=== PATIENT | female | born 1955 | race African-American/Black ===

== ENCOUNTER 2023-08-05 15:31 | Inpatient (IN) | payer MEDICARE, OTHER ==
[~2023-08-05] VITALS: Ht 152.4 cm; Wt 107.7 kg
[~2023-08-05 15:31] MED LIST: ALBU8.5H8 IH; CARV25TA32 PO; FERR325T27 PO; FURO40 PO; IPRAHFA IH; ISOS20TA9 PO; LISI40TA9 PO; LOPE-232 PO; OMEP20TA20 PO; OXYB5 PO; PRED-554 PO; WARF5TAB9 PO
[2023-08-05] MEDS ORDERED: FOLI-130 PO (17:46)
[2023-08-05] MEDS ORDERED: METO5TAB7 PO (17:46)
[2023-08-05] MEDS ORDERED: ALBU18HF12 IH (17:46)
[2023-08-05] MEDS ORDERED: AMLO10TA55 PO (17:46)
[2023-08-05] MEDS ORDERED: EPOE10003 SQ (17:46)
[2023-08-05] MEDS ORDERED: BUME1TAB6 PO (17:46)
[2023-08-05] MEDS ORDERED: ASPI-1444 PO (17:46)
[2023-08-05] MEDS ORDERED: OMEP20CA12 PO (17:46)
[2023-08-05] MEDS ORDERED: ATOR20TA65 PO (17:46)
[2023-08-05] MEDS ORDERED: GABA-529 PO (17:46)
[2023-08-05] MEDS ORDERED: POTA-92 PO (17:46)
[2023-08-05] MEDS ORDERED: IPRA3AMP24 NEB (17:46)
[2023-08-05] MEDS ORDERED: ALLO100T PO (17:46)
[2023-08-05] MEDS ORDERED: APIX2.5T PO (17:46)
[2023-08-05] MEDS ORDERED: MONT-40 PO (17:46)
[2023-08-05] MEDS ORDERED: METO-408 PO (17:46)
[2023-08-05] MEDS ORDERED: ANAS1TAB50 PO (17:46)
[2023-08-05] MEDS ORDERED: CINA30TA5 PO (17:46)
[2023-08-05] MEDS ORDERED: HYDR10TA31 PO (17:46)
[2023-08-05 18:07] LABS: BASOPHILS % (AUTO) 0.4 % (0.0-2.0); EOSINOPHILS % (AUTO) 3.1 % (1.0-6.0); LYMPHOCYTES # (AUTO) 0.6 K/uL (1.0-4.8); LYMPHOCYTES % (AUTO) 9.8 % (22.0-44.0); MEAN CORPUSCULAR HEMOGLOBIN 23.4 pg (26.0-34.0); MEAN CORPUSCULAR HGB CONC 29.7 G/dL (31.0-37.0); MEAN CORPUSCULAR VOLUME 79 fL (80-100); MONOCYTES # (AUTO) 0.7 K/uL (0.1-1.0); MONOCYTES % (AUTO) 10.1 % (2.0-9.0); NEUTROPHILS % (AUTO) 76.6 % (40.0-70.0); PLATELET COUNT (AUTO) 158 K/uL (150-450); RED BLOOD CELL COUNT(AUTO) 3.43 MIL/uL (4.00-5.20); RED CELL DISTRIBUTION WIDTH 21.5 % (11.5-14.5); WHITE BLOOD COUNT (AUTO) 6.5 K/uL (4.5-11.0)
[2023-08-05 18:29] LABS: ALBUMIN 3.3 g/dL (3.4-5.0); BILIRUBIN,TOTAL 1.2 mg/dL (0.1-1.0); CREATININE 2.21 mg/dL (0.60-1.30); TOTAL PROTEIN, SERUM 7.4 g/dL (6.4-8.2)
[2023-08-05 18:31] LABS: POTASSIUM 2.5 mmol/L (3.5-5.1); TROPONIN I-HIGH SENSITIVITY 132 ng/L (<51)
[2023-08-05] MEDS ORDERED: FUROSEMIDE 40 MG/4 ML VIAL IVP ONE (19:30)
[2023-08-05] MEDS: ASPIRIN 325 MG TABLET PO ONE (19:47)
[2023-08-05] MEDS: POTASSIUM CHLORIDE 20 MEQ ER TABLET PO ONE (19:47)
[2023-08-05] MEDS: FUROSEMIDE 20 MG/2 ML VIAL IVP ONE (19:47)
[2023-08-05] MEDS ORDERED: ONDANSETRON HCL 4 MG/2 ML VIAL IVP PRN (20:15)
[2023-08-05] MEDS: POTASSIUM CHL 10 MEQ/WATER 50 ML IV SCH (20:30)
[2023-08-05 20:42] LABS: MAGNESIUM 2.5 mg/dL (1.80-2.40)
[2023-08-05 20:51] LABS: % IRON SATURATION 6.5 % (22-44)
[2023-08-05] MEDS: DOCUSATE SODIUM 100 MG CAPSULE PO SCH (20:51)
[2023-08-05] MEDS: GABAPENTIN 100 MG CAPSULE PO SCH (20:51)
[2023-08-05] MEDS: APIXABAN 2.5 MG TABLET PO SCH (22:00)
[2023-08-05] MEDS: OMEPRAZOLE 20 MG CAPSULE PO SCH (22:00)
[2023-08-05] MEDS: HydrALAZINE HCL 10 MG TABLET PO SCH (22:00)
[2023-08-05 22:41] LABS: TROPONIN I-HIGH SENSITIVITY 136 ng/L (<51)
[2023-08-05 23:09] VITALS: BP 150/86; PULSE 81; RESP 20; TEMP 97.7
[2023-08-05] MEDS: ACETAMINOPHEN 325 MG TABLET PO PRN (23:52)
[2023-08-06] VITALS (7 sets, daily range): BP systolic 112–146; BP diastolic 71–83; PULSE 74–82; RESP 18–19; TEMP 97.6–98
[2023-08-06] MEDS ORDERED: HEPARIN SODIUM,PORCINE 5,000 UNITS/ML VIAL SQ SCH
[2023-08-06 07:48] LABS: BASOPHILS % (AUTO) 0.7 % (0.0-2.0); EOSINOPHILS % (AUTO) 4.8 % (1.0-6.0); HEMATOCRIT 27.1 % (36-46); LYMPHOCYTES # (AUTO) 0.6 K/uL (1.0-4.8); LYMPHOCYTES % (AUTO) 11.9 % (22.0-44.0); MEAN CORPUSCULAR HEMOGLOBIN 23.9 pg (26.0-34.0); MEAN CORPUSCULAR HGB CONC 29.6 G/dL (31.0-37.0); MEAN CORPUSCULAR VOLUME 81 fL (80-100); MONOCYTES # (AUTO) 0.7 K/uL (0.1-1.0); MONOCYTES % (AUTO) 13.6 % (2.0-9.0); NEUTROPHILS # (AUTO) 3.7 K/uL (1.8-7.7); PLATELET COUNT (AUTO) 149 K/uL (150-450); RED BLOOD CELL COUNT(AUTO) 3.36 MIL/uL (4.00-5.20); RED CELL DISTRIBUTION WIDTH 20.9 % (11.5-14.5); WHITE BLOOD COUNT (AUTO) 5.3 K/uL (4.5-11.0)
[2023-08-06 07:56] LABS: CALCIUM, TOTAL 8.6 mg/dL (8.8-10.5); CREATININE 2.18 mg/dL (0.60-1.30); MAGNESIUM 2.4 mg/dL (1.80-2.40)
[2023-08-06 08:01] LABS: RBC MORPHOLOGY COMMENT ABNORMAL RBC MORPH
[2023-08-06 08:03] LABS: POTASSIUM 2.9 mmol/L (3.5-5.1); TROPONIN I-HIGH SENSITIVITY 126 ng/L (<51)
[2023-08-06] MEDS: BUMETANIDE 0.25 MG/ML 4 ML VIAL IVP SCH (09:00)
[2023-08-06] MEDS ORDERED: BUMETANIDE 1 MG TABLET PO SCH (09:00)
[2023-08-06] MEDS ORDERED: AmLODIPine BESYLATE 10 MG TABLET PO SCH (09:00)
[2023-08-06] MEDS: METOPROLOL SUCCINATE 25 MG ER TABLET PO SCH (09:22)
[2023-08-06] MEDS: FOLIC ACID 1 MG TABLET PO SCH (09:22)
[2023-08-06] MEDS: ASPIRIN 81 MG DR TABLET PO SCH (09:23)
[2023-08-06] MEDS: ATORVASTATIN CALCIUM 20 MG TABLET PO SCH (09:23)
[2023-08-06] MEDS: ALLOPURINOL 100 MG TABLET PO SCH (09:24)
[2023-08-06] MEDS: CINACALCET HCL 30 MG TABLET PO SCH (09:24)
[2023-08-06] MEDS: ANASTROZOLE 1 MG TABLET PO SCH (09:25)
[2023-08-06] MEDS: MONTELUKAST SODIUM 10 MG TABLET PO SCH (10:51)
[2023-08-06] MEDS: POTASSIUM CHLORIDE 20 MEQ ER TABLET PO SCH (10:51)
[2023-08-06] MEDS: SOD FERRIC GLUC COMPLX/SUCROSE 125 MG in SODIUM CHLORIDE 0.9% 100 ML IV SCH (12:00)
[2023-08-06] MEDS: OxyCODONE HCL/ACETAMINOPHEN 5-325 MG TABLET PO PRN (13:03)
[2023-08-06] MEDS: EPOETIN ALFA 10,000 UNITS/ML VIAL SQ ONE (16:22)
[2023-08-07 00:15] VITALS: BP 136/81; PULSE 74; RESP 18; TEMP 97.4
[2023-08-07 04:31] VITALS: BP 127/76; PULSE 77; RESP 19; TEMP 98
[2023-08-07 07:25] LABS: BASOPHILS % (AUTO) 0.8 % (0.0-2.0); EOSINOPHILS % (AUTO) 5.9 % (1.0-6.0); HEMATOCRIT 26.4 % (36-46); HEMOGLOBIN 7.6 g/dL (12.0-16.0); LYMPHOCYTES # (AUTO) 0.8 K/uL (1.0-4.8); LYMPHOCYTES % (AUTO) 12.8 % (22.0-44.0); MEAN CORPUSCULAR HEMOGLOBIN 23.5 pg (26.0-34.0); MEAN CORPUSCULAR HGB CONC 28.8 G/dL (31.0-37.0); MEAN CORPUSCULAR VOLUME 82 fL (80-100); MONOCYTES # (AUTO) 0.5 K/uL (0.1-1.0); MONOCYTES % (AUTO) 8.1 % (2.0-9.0); NEUTROPHILS # (AUTO) 4.4 K/uL (1.8-7.7); NEUTROPHILS % (AUTO) 72.4 % (40.0-70.0); PLATELET COUNT (AUTO) 184 K/uL (150-450); RED BLOOD CELL COUNT(AUTO) 3.24 MIL/uL (4.00-5.20); WHITE BLOOD COUNT (AUTO) 6.1 K/uL (4.5-11.0)
[2023-08-07 08:00] LABS: CREATININE 2.28 mg/dL (0.60-1.30); MAGNESIUM 2.7 mg/dL (1.80-2.40); PHOSPHORUS 2.4 mg/dL (2.5-4.9); POTASSIUM 5.5 mmol/L (3.5-5.1)
[2023-08-07 08:08] VITALS: BP 128/80; PULSE 80; RESP 18; TEMP 98
[2023-08-07] MEDS ORDERED: BUMETANIDE 0.25 MG/ML 4 ML VIAL IVP SCH (09:00)
[2023-08-07 09:47] LABS: RBC MORPHOLOGY COMMENT ABNORMAL RBC MORPH
[2023-08-07] MEDS: METOLAZONE 2.5 MG TABLET PO SCH (10:30)
[2023-08-07 11:59] VITALS: BP 110/55; PULSE 69; RESP 18; TEMP 98
[2023-08-07 16:25] VITALS: BP 139/83; PULSE 85; RESP 18; TEMP 97.8
[2023-08-07] MEDS: BUMETANIDE 1 MG TABLET PO SCH (16:46)
[2023-08-07] MEDS: ALBUTEROL SULFATE HFA 90 MCG/PUFF 8 GM INHALER IH PRN (17:21)
[2023-08-07 19:58] VITALS: BP_SYST 112; BP_SYST 84; BP_DIAS 65; BP_DIAS 78; PULSE 72; RESP 18; TEMP 97.7
[2023-08-08 00:20] VITALS: BP 100/52; PULSE 82; RESP 18; TEMP 97.6
[2023-08-08 04:27] VITALS: BP 100/58; PULSE 81; RESP 18; TEMP 97.5
[2023-08-08 07:39] VITALS: BP 100/73; PULSE 68; RESP 18; TEMP 97.5
[2023-08-08 10:06] LABS: CALCIUM, TOTAL 8.9 mg/dL (8.8-10.5); CREATININE 2.55 mg/dL (0.60-1.30); POTASSIUM 5.7 mmol/L (3.5-5.1)
[2023-08-08 10:10] LABS: MAGNESIUM 2.6 mg/dL (1.80-2.40); PHOSPHORUS 2.9 mg/dL (2.5-4.9)
[2023-08-08] MEDS: SODIUM ZIRCONIUM CYCLOSILICATE 5 GM POWDER PACKET PO ONE ×2 (12:25→20:12)
[2023-08-08 16:34] VITALS: BP 118/68; PULSE 69; RESP 18; TEMP 97.9
[2023-08-08 19:46] VITALS: BP 98/65; PULSE 82; RESP 20; TEMP 97.8
[2023-08-09 00:56] VITALS: BP 111/72; PULSE 74; RESP 20; TEMP 98.2
[2023-08-09 03:21] VITALS: BP 109/70; PULSE 86; RESP 20; TEMP 98.5
[2023-08-09 07:25] VITALS: BP 110/70; PULSE 72; RESP 18; TEMP 98
[2023-08-09 08:04] LABS: BASOPHILS % (AUTO) 0.6 % (0.0-2.0); HEMOGLOBIN 7.6 g/dL (12.0-16.0); LYMPHOCYTES # (AUTO) 0.7 K/uL (1.0-4.8); LYMPHOCYTES % (AUTO) 13.6 % (22.0-44.0); MEAN CORPUSCULAR HEMOGLOBIN 23.4 pg (26.0-34.0); MEAN CORPUSCULAR HGB CONC 29.2 G/dL (31.0-37.0); MEAN CORPUSCULAR VOLUME 80 fL (80-100); MONOCYTES # (AUTO) 0.4 K/uL (0.1-1.0); MONOCYTES % (AUTO) 7.7 % (2.0-9.0); NEUTROPHILS # (AUTO) 3.9 K/uL (1.8-7.7); NEUTROPHILS % (AUTO) 72.1 % (40.0-70.0); PLATELET COUNT (AUTO) 178 K/uL (150-450); RED BLOOD CELL COUNT(AUTO) 3.25 MIL/uL (4.00-5.20); RED CELL DISTRIBUTION WIDTH 20.8 % (11.5-14.5); WHITE BLOOD COUNT (AUTO) 5.4 K/uL (4.5-11.0)
[2023-08-09 08:17] LABS: CALCIUM, TOTAL 8.6 mg/dL (8.8-10.5); CREATININE 2.7 mg/dL (0.60-1.30); MAGNESIUM 2.1 mg/dL (1.80-2.40); PHOSPHORUS 3.3 mg/dL (2.5-4.9); POTASSIUM 4.9 mmol/L (3.5-5.1)
[2023-08-09 09:38] LABS: RBC MORPHOLOGY COMMENT ABNORMAL RBC MORPH
[2023-08-09 11:00] VITALS: BP 123/67; PULSE 88; RESP 18; TEMP 98.8
[2023-08-09 15:41] VITALS: BP 114/57; PULSE 65; RESP 19; TEMP 98.6
== END 2023-08-09 16:45 | disposition home or self-care (01) | DRG 194 ==
LOC: EMS 15:31 → 5S 21:57
PROVIDERS: ADMIT Internal Medicine; ATTEND Internal Medicine
DX: I13.0 Hypertensive heart and chronic kidney disease with heart failure and stage 1 through stage 4 chronic kidney disease, or unspecified chronic kidney disease (principal); D69.6 Thrombocytopenia, unspecified; I27.20 Pulmonary hypertension, unspecified; E87.3 Alkalosis; E44.0 Moderate protein-calorie malnutrition; N18.4 Chronic kidney disease, stage 4 (severe); D63.1 Anemia in chronic kidney disease; E87.6 Hypokalemia; I50.33 Acute on chronic diastolic (congestive) heart failure; E11.22 Type 2 diabetes mellitus with diabetic chronic kidney disease; Z68.42 Body mass index [BMI] 45.0-49.9, adult; I48.19 Other persistent atrial fibrillation; J96.11 Chronic respiratory failure with hypoxia; R62.7 Adult failure to thrive; J44.9 Chronic obstructive pulmonary disease, unspecified; Z20.822 Contact with and (suspected) exposure to COVID-19; Z85.3 Personal history of malignant neoplasm of breast; M81.0 Age-related osteoporosis without current pathological fracture; R79.89 Other specified abnormal findings of blood chemistry; E87.5 Hyperkalemia; I34.0 Nonrheumatic mitral (valve) insufficiency; E66.01 Morbid (severe) obesity due to excess calories; Z99.81 Dependence on supplemental oxygen; E78.5 Hyperlipidemia, unspecified; T50.2X5A Adverse effect of carbonic-anhydrase inhibitors, benzothiadiazides and other diuretics, initial encounter; Y92.89 Other specified places as the place of occurrence of the external cause; I25.10 Atherosclerotic heart disease of native coronary artery without angina pectoris; Z74.01 Bed confinement status; Z79.899 Other long term (current) drug therapy; Z87.891 Personal history of nicotine dependence; G47.33 Obstructive sleep apnea (adult) (pediatric)
CPT/HCPCS: 71045; 80048; 80053; 83540; 83550; 83735; 83880; 84100; 84132; 84484; 85025; 85045; 93005; 93306; 97116; 97163; 99285; J0885; J1940; J2916; J3480; J3490; J3535; J7050; Q9967; 36415-L1; 36415-TC

== ENCOUNTER 2023-08-13 13:47 | Inpatient (IN) | payer MEDICARE, OTHER ==
[~2023-08-13] VITALS: Ht 167.6 cm; Wt 115.5 kg
[~2023-08-13 13:47] MED LIST changes: +ALBU18HF12 IH; -ALBU8.5H8 IH; +AMLO10TA55 PO; +ANAS1TAB50 PO; +APIX2.5T PO; +ATOR20TA65 PO; +BUME1TAB6 PO; -CARV25TA32 PO; +CINA30TA5 PO; +EPOE10003 SQ; -FERR325T27 PO; +FOLI-130 PO; -FURO40 PO; +HYDR10TA31 PO; +IPRA3AMP24 NEB; -IPRAHFA IH; -ISOS20TA9 PO; -LISI40TA9 PO; -LOPE-232 PO; +METO-408 PO; +METO5TAB7 PO; +MONT-40 PO; +OMEP20CA12 PO; -OMEP20TA20 PO; -OXYB5 PO; -PRED-554 PO; -WARF5TAB9 PO
[2023-08-13 15:11] LABS: BASOPHILS % (AUTO) 1.1 % (0.0-2.0); EOSINOPHILS % (AUTO) 3.7 % (1.0-6.0); HEMATOCRIT 27.6 % (36-46); HEMOGLOBIN 8.1 g/dL (12.0-16.0); LYMPHOCYTES # (AUTO) 0.8 K/uL (1.0-4.8); LYMPHOCYTES % (AUTO) 15.9 % (22.0-44.0); MEAN CORPUSCULAR HEMOGLOBIN 23.3 pg (26.0-34.0); MEAN CORPUSCULAR HGB CONC 29.2 G/dL (31.0-37.0); MEAN CORPUSCULAR VOLUME 80 fL (80-100); MONOCYTES # (AUTO) 0.3 K/uL (0.1-1.0); MONOCYTES % (AUTO) 6.7 % (2.0-9.0); NEUTROPHILS # (AUTO) 3.4 K/uL (1.8-7.7); NEUTROPHILS % (AUTO) 72.6 % (40.0-70.0); PLATELET COUNT (AUTO) 215 K/uL (150-450); RED BLOOD CELL COUNT(AUTO) 3.47 MIL/uL (4.00-5.20); RED CELL DISTRIBUTION WIDTH 21.1 % (11.5-14.5); WHITE BLOOD COUNT (AUTO) 4.7 K/uL (4.5-11.0)
[2023-08-13 15:18] LABS: CALCIUM, TOTAL 9.4 mg/dL (8.8-10.5); CREATININE 2.16 mg/dL (0.60-1.30); POTASSIUM 3.7 mmol/L (3.5-5.1)
[2023-08-13 15:23] LABS: ALBUMIN 3.1 g/dL (3.4-5.0); BILIRUBIN,TOTAL 0.9 mg/dL (0.1-1.0); TOTAL PROTEIN, SERUM 7.4 g/dL (6.4-8.2)
[2023-08-13 15:28] LABS: TROPONIN I-HIGH SENSITIVITY 46 ng/L (<51)
[2023-08-13 15:54] LABS: RBC MORPHOLOGY COMMENT ABNORMAL RBC MORPH
[2023-08-13] MEDS ORDERED: ALBUTEROL SULFATE 2.5 MG/0.5 ML NEB SOLUTION NEB PRN (16:00)
[2023-08-13] MEDS ORDERED: BISACODYL 10 MG RECTAL RECTAL SUPPOSITORY PR PRN (16:00)
[2023-08-13] MEDS ORDERED: ONDANSETRON HCL 4 MG/2 ML VIAL IVP PRN (16:00)
[2023-08-13 16:26] LABS: GLUCOMETER DEV NAME(LOC) ER.6; GLUCOSE,POINT OF CARE 78 MG/DL (70-110)
[2023-08-13 17:00] LABS: APPEARANCE,URINE CLEAR (CLEAR); BILIRUBIN,URINE NEGATIVE (NEGATIVE); COLOR,URINE LIGHT YELLOW (YELLOW); GLUCOSE, URINE (UA) NEGATIVE (NEGATIVE); KETONES,URINE NEGATIVE (NEGATIVE); LEUKOCYTE ESTERASE ,URINE TRACE (NEGATIVE); NITRATE,URINE NEGATIVE (NEGATIVE); OCCULT BLOOD,URINE NEGATIVE (NEGATIVE); PROTEIN,URINE NEGATIVE (NEGATIVE); SPECIFIC GRAVITIY, URINE 1.014 (1.003-1.030); UROBILINOGEN,URINE <=1.0 mg/dL (<=1.0)
[2023-08-13 17:14] LABS: SQUAMOUS EPITHELIAL CELL,UR Few /LPF (None Seen)
[2023-08-13 17:14] LABS: COVID AG,FIA SOURCE NASAL SWAB
[2023-08-13 17:15] LABS: RBC,URINE None Seen /HPF (0-2)
[2023-08-13 17:16] LABS: BACTERIA,URINE Few /HPF (None Seen)
[2023-08-13] MEDS: OxyCODONE HCL/ACETAMINOPHEN 5-325 MG TABLET PO PRN (17:39)
[2023-08-13] MEDS: BUMETANIDE 0.25 MG/ML 4 ML VIAL IVP SCH (17:39)
[2023-08-13 17:40] LABS: SARS-COV2 (COVID) ANTIGEN,FIA Negative (Negative)
[2023-08-13] MEDS: DOCUSATE SODIUM 100 MG CAPSULE PO SCH (21:00)
[2023-08-13 21:06] VITALS: BP 113/87; PULSE 74; RESP 20; TEMP 97.7
[2023-08-13 21:11] LABS: TROPONIN I-HIGH SENSITIVITY 44 ng/L (<51)
[2023-08-13] MEDS: APIXABAN 2.5 MG TABLET PO SCH (21:59)
[2023-08-13] MEDS: ACETAMINOPHEN 325 MG TABLET PO PRN (22:01)
[2023-08-13] MEDS: METOPROLOL TARTRATE 25 MG TABLET PO SCH (22:04)
[2023-08-14 00:38] VITALS: BP 103/64; PULSE 63; RESP 18; TEMP 98.1
[2023-08-14 04:36] VITALS: BP 98/60; PULSE 67; RESP 18; TEMP 98
[2023-08-14 07:56] VITALS: BP 115/68; PULSE 64; RESP 18; TEMP 97.6
[2023-08-14] MEDS: FAMOTIDINE 20 MG TABLET PO SCH (09:01)
[2023-08-14 11:03] VITALS: BP 109/68; PULSE 65; RESP 18; TEMP 97.8
[2023-08-14] MEDS ORDERED: ACET-3385 PO (12:24)
== END 2023-08-14 17:35 | disposition home or self-care (01) | DRG 198 ==
LOC: EMS 13:47 → 5N 19:00
PROVIDERS: ADMIT Internal Medicine; ATTEND Internal Medicine
DX: I25.10 Atherosclerotic heart disease of native coronary artery without angina pectoris (principal); I13.0 Hypertensive heart and chronic kidney disease with heart failure and stage 1 through stage 4 chronic kidney disease, or unspecified chronic kidney disease; I27.20 Pulmonary hypertension, unspecified; E11.22 Type 2 diabetes mellitus with diabetic chronic kidney disease; I50.9 Heart failure, unspecified; Z20.822 Contact with and (suspected) exposure to COVID-19; G89.29 Other chronic pain; E66.01 Morbid (severe) obesity due to excess calories; G47.33 Obstructive sleep apnea (adult) (pediatric); I48.20 Chronic atrial fibrillation, unspecified; J44.9 Chronic obstructive pulmonary disease, unspecified; R07.89 Other chest pain; N18.4 Chronic kidney disease, stage 4 (severe); M81.0 Age-related osteoporosis without current pathological fracture; Z68.41 Body mass index [BMI] 40.0-44.9, adult; Z88.5 Allergy status to narcotic agent; Z79.01 Long term (current) use of anticoagulants; Z79.899 Other long term (current) drug therapy; Z85.3 Personal history of malignant neoplasm of breast; Z83.3 Family history of diabetes mellitus
CPT/HCPCS: 71045; 80053; 81001; 82550; 82962; 83880; 84484; 85025; 93005; 99285; J3490; 36415-L1; 36415-TC

== ENCOUNTER 2023-11-05 00:38 | Emergency (ER) | payer MEDICARE, OTHER ==
[~2023-11-05] VITALS: Ht 172.7 cm; Wt 109.1 kg
[~2023-11-05 00:38] MED LIST changes: +ACET-3385 PO; +ALLO100T PO; +AMLO-257 PO; -AMLO10TA55 PO; +ASPI-1444 PO; +BUME1TAB50 PO; -BUME1TAB6 PO; +DOXY-354 PO; -EPOE10003 SQ; +FLUT1BLS19 IH; -HYDR10TA31 PO; -METO-408 PO; +METO25XL PO; -METO5TAB7 PO; -OMEP20CA12 PO; +PRED-554 PO; +TRAM50TA5 PO
[2023-11-05] MEDS: TraMADol HCL 50 MG TABLET PO ONE (02:45)
[2023-11-05] MEDS ORDERED: TRAM50TA5 PO (03:44)
[2023-11-05 04:50] VITALS: BP 122/73; PULSE 78; RESP 16; TEMP 98
[2023-11-05 11:55] LABS: GLUCOMETER DEV NAME(LOC) ERT.5; GLUCOSE,POINT OF CARE 105 MG/DL (70-110)
== END 2023-11-05 08:21 | disposition home or self-care (01) ==
LOC: EMS 00:45
DX: S90.31XA Contusion of right foot, initial encounter (principal); I11.0 Hypertensive heart disease with heart failure; I50.9 Heart failure, unspecified; E11.9 Type 2 diabetes mellitus without complications; J45.909 Unspecified asthma, uncomplicated; J44.9 Chronic obstructive pulmonary disease, unspecified; I48.91 Unspecified atrial fibrillation; Z88.5 Allergy status to narcotic agent; Z88.6 Allergy status to analgesic agent; X58.XXXA Exposure to other specified factors, initial encounter; Y93.89 Activity, other specified; Y92.89 Other specified places as the place of occurrence of the external cause; Y99.8 Other external cause status
CPT/HCPCS: 82962; 99284

== ENCOUNTER 2024-01-11 02:26 | Inpatient (IN) | payer MEDICARE, OTHER ==
[2024-01-11] VITALS (10 sets, daily range): BP systolic 147; BP diastolic 76–96; PULSE 72–91; RESP 14–22; TEMP 97.8–98.2; O2SAT 87–100
[~2024-01-11] VITALS: Ht 170.2 cm; Wt 139.2 kg
[~2024-01-11 02:26] MED LIST changes: -ALLO100T PO; -AMLO-257 PO; -ANAS1TAB50 PO; -ASPI-1444 PO; -CINA30TA5 PO; -DOXY-354 PO; +OXYC-26 PO; +OXYC-38 PO; -TRAM50TA5 PO
[2024-01-11] MEDS: IPRATROPIUM BROMIDE 0.5 MG/2.5 ML NEB SOLUTION NEB ONE ×2 (03:50→07:55)
[2024-01-11] MEDS: ALBUTEROL SULFATE 2.5 MG/0.5 ML NEB SOLUTION NEB ONE ×2 (03:50→07:56)
[2024-01-11] MEDS: PredniSONE 20 MG TABLET PO ONE (04:40)
[2024-01-11] MEDS: LEVOFLOXACIN 250 MG TABLET PO ONE (04:41)
[2024-01-11 05:18] LABS: COVID AG,FIA SOURCE NASAL SWAB
[2024-01-11 05:24] LABS: CREATININE 2.36 mg/dL (0.60-1.30); POTASSIUM 4.7 mmol/L (3.5-5.1)
[2024-01-11 05:26] LABS: INFLUENZA TYPE A NEGATIVE FOR TYPE A (NEGATIVE); INFLUENZA TYPE B POSITIVE FOR TYPE B (NEGATIVE); SARS-COV2 (COVID) ANTIGEN,FIA Negative (Negative)
[2024-01-11 05:36] LABS: TROPONIN I-HIGH SENSITIVITY 91 ng/L (<51)
[2024-01-11 05:43] LABS: BASOPHILS % (AUTO) 0.2 % (0.0-2.0); EOSINOPHILS % (AUTO) 0.1 % (1.0-6.0); HEMATOCRIT 28.7 % (36-46); HEMOGLOBIN 8.4 g/dL (12.0-16.0); LYMPHOCYTES # (AUTO) 0.2 K/uL (1.0-4.8); LYMPHOCYTES % (AUTO) 1.5 % (22.0-44.0); MEAN CORPUSCULAR HEMOGLOBIN 23.6 pg (26.0-34.0); MEAN CORPUSCULAR HGB CONC 29.2 G/dL (31.0-37.0); MEAN CORPUSCULAR VOLUME 81 fL (80-100); MONOCYTES # (AUTO) 0.8 K/uL (0.1-1.0); MONOCYTES % (AUTO) 7.1 % (2.0-9.0); NEUTROPHILS # (AUTO) 10.4 K/uL (1.8-7.7); NEUTROPHILS % (AUTO) 91.1 % (40.0-70.0); PLATELET COUNT (AUTO) 114 K/uL (150-450); RED BLOOD CELL COUNT(AUTO) 3.55 MIL/uL (4.00-5.20); RED CELL DISTRIBUTION WIDTH 23.4 % (11.5-14.5); WHITE BLOOD COUNT (AUTO) 11.4 K/uL (4.5-11.0)
[2024-01-11 06:07] LABS: RBC MORPHOLOGY COMMENT ABNORMAL RBC MORPH
[2024-01-11] MEDS: ASPIRIN 81 MG CHEWABLE TABLET PO ONE (06:12)
[2024-01-11] MEDS ORDERED: MAGNESIUM HYDROXIDE SUSPENSION 30 ML UDCUP PO PRN (13:15)
[2024-01-11] MEDS ORDERED: BISACODYL 10 MG RECTAL RECTAL SUPPOSITORY PR PRN (13:15)
[2024-01-11] MEDS ORDERED: ONDANSETRON HCL 4 MG/2 ML VIAL IVP PRN (13:15)
[2024-01-11] MEDS: OSELTAMIVIR PHOSPHATE 30 MG CAPSULE PO ONE (13:56)
[2024-01-11] MEDS: IPRATROPIUM BROMIDE 0.5 MG/2.5 ML NEB SOLUTION NEB PRN (14:10)
[2024-01-11] MEDS: ALBUTEROL SULFATE 2.5 MG/0.5 ML NEB SOLUTION NEB PRN (14:10)
[2024-01-11] MEDS ORDERED: HEPARIN SODIUM,PORCINE 5,000 UNITS/ML VIAL SQ SCH (16:00)
[2024-01-11] MEDS: MethylPREDNISolone SOD SUCC 125 MG/2 ML VIAL IVP SCH (18:00)
[2024-01-11] MEDS: APIXABAN 2.5 MG TABLET PO SCH (20:40)
[2024-01-11] MEDS: FLUTICASONE/SALMETEROL 250-50 MCG/INH INHALER [60] IH SCH (20:40)
[2024-01-11] MEDS ORDERED: DEXTROSE 50%-WATER 25 GM/50 ML SYRINGE IVP PRN (21:45)
[2024-01-11] MEDS: INSULIN LISPRO 100 UNITS/ML SQ PRN (21:59)
[2024-01-12] VITALS (8 sets, daily range): BP systolic 138–149; BP diastolic 86–103; PULSE 80–100; RESP 18–21; TEMP 98–98.5; O2SAT 95–100
[2024-01-12 01:30] LABS: GLUCOMETER DEV NAME(LOC) 5S.2D; GLUCOSE,POINT OF CARE 335 MG/DL (70-110)
[2024-01-12] MEDS: OSELTAMIVIR PHOSPHATE 30 MG CAPSULE PO SCH (08:23)
[2024-01-12] MEDS: FOLIC ACID 1 MG TABLET PO SCH (08:24)
[2024-01-12] MEDS: PANTOPRAZOLE SODIUM 40 MG DR TABLET PO SCH (08:24)
[2024-01-12] MEDS: ATORVASTATIN CALCIUM 20 MG TABLET PO SCH (08:24)
[2024-01-12] MEDS: METOPROLOL SUCCINATE 25 MG ER TABLET PO SCH (08:24)
[2024-01-12] MEDS: BUMETANIDE 1 MG TABLET PO SCH (08:24)
[2024-01-12] MEDS: LEVOFLOXACIN 500 MG TABLET PO SCH (08:24)
[2024-01-12] MEDS: MONTELUKAST SODIUM 10 MG TABLET PO SCH (08:24)
[2024-01-12] MEDS: GuaiFENesin/D-METHORPHAN [SUGAR-FREE] 200-20MG/10 ML SYRUP UDCUP PO PRN (08:25)
[2024-01-12] MEDS ORDERED: PredniSONE 20 MG TABLET PO SCH (09:00)
[2024-01-12] MEDS ORDERED: FUROSEMIDE 20 MG/2 ML VIAL IVP SCH (09:30)
[2024-01-12 09:46] LABS: GLUCOMETER DEV NAME(LOC) 5S.1C; GLUCOSE,POINT OF CARE 229 MG/DL (70-110)
[2024-01-12 12:56] LABS: GLUCOMETER DEV NAME(LOC) 5S.2D; GLUCOSE,POINT OF CARE 276 MG/DL (70-110)
[2024-01-12 17:21] LABS: GLUCOMETER DEV NAME(LOC) 5N.1D; GLUCOSE,POINT OF CARE 225 MG/DL (70-110)
[2024-01-12 22:20] LABS: GLUCOMETER DEV NAME(LOC) 5N.1D; GLUCOSE,POINT OF CARE 285 MG/DL (70-110)
[2024-01-13] MEDS: ZOLPIDEM TARTRATE 5 MG TABLET PO PRN (00:19)
[2024-01-13 02:00] VITALS: PULSE 82; RESP 22; O2SAT 98
[2024-01-13] MEDS: HYDROmorphone HCL 2 MG TABLET PO PRN (02:11)
[2024-01-13 03:34] VITALS: BP 134/76; PULSE 62; RESP 19; TEMP 97.6; O2SAT 93
[2024-01-13 05:51] LABS: GLUCOMETER DEV NAME(LOC) 5N.2C; GLUCOSE,POINT OF CARE 276 MG/DL (70-110)
[2024-01-13 06:35] LABS: BASOPHILS % (AUTO) 0.6 % (0.0-2.0); EOSINOPHILS % (AUTO) 0 % (1.0-6.0); HEMATOCRIT 26.1 % (36-46); HEMOGLOBIN 7.8 g/dL (12.0-16.0); LYMPHOCYTES # (AUTO) 0.1 K/uL (1.0-4.8); LYMPHOCYTES % (AUTO) 1.6 % (22.0-44.0); MEAN CORPUSCULAR HEMOGLOBIN 23.6 pg (26.0-34.0); MEAN CORPUSCULAR HGB CONC 29.8 G/dL (31.0-37.0); MEAN CORPUSCULAR VOLUME 79 fL (80-100); MONOCYTES % (AUTO) 1.1 % (2.0-9.0); NEUTROPHILS # (AUTO) 4.5 K/uL (1.8-7.7); PLATELET COUNT (AUTO) 116 K/uL (150-450); RED BLOOD CELL COUNT(AUTO) 3.31 MIL/uL (4.00-5.20); RED CELL DISTRIBUTION WIDTH 22.8 % (11.5-14.5); WHITE BLOOD COUNT (AUTO) 4.7 K/uL (4.5-11.0)
[2024-01-13 06:42] LABS: NEUTROPHILS % (AUTO) 96.7 % (40.0-70.0)
[2024-01-13 06:59] LABS: CREATININE 2.28 mg/dL (0.60-1.30); POTASSIUM 4.6 mmol/L (3.5-5.1)
[2024-01-13 07:09] LABS: TROPONIN I-HIGH SENSITIVITY 75 ng/L (<51)
[2024-01-13 07:41] VITALS: BP 155/86; PULSE 78; RESP 18; TEMP 98.1; O2SAT 99
[2024-01-13] MEDS: BUMETANIDE 0.25 MG/ML 4 ML VIAL IVP SCH (09:05)
[2024-01-13] MEDS ORDERED: APIX5TAB PO (11:21)
[2024-01-13] MEDS ORDERED: ALBU18HF12 IH (11:21)
[2024-01-13] MEDS ORDERED: BUME1TAB50 PO (11:21)
[2024-01-13] MEDS ORDERED: LEVO-72 PO (11:21)
[2024-01-13] MEDS ORDERED: FLUT1BLS19 IH (11:21)
[2024-01-13] MEDS ORDERED: OSEL30CA2 PO (11:21)
[2024-01-13 11:46] VITALS: BP 137/65; PULSE 87; RESP 18; TEMP 98.1; O2SAT 95
[2024-01-13 20:36] LABS: GLUCOMETER DEV NAME(LOC) 5N.2C; GLUCOSE,POINT OF CARE 295 MG/DL (70-110)
[2024-01-13] MEDS ORDERED: APIXABAN 2.5 MG TABLET PO SCH (21:00)
[2024-01-13] MEDS ORDERED: BUMETANIDE 1 MG TABLET PO SCH (21:00)
== END 2024-01-13 15:05 | disposition home health service (06) | DRG 133 ==
LOC: EMS 02:26 → EDH 13:31 → 5S 16:00 → 5N 01-12 08:11
PROVIDERS: ADMIT Hospitalist; ATTEND Hospitalist
DX: J96.21 Acute and chronic respiratory failure with hypoxia (principal); I50.33 Acute on chronic diastolic (congestive) heart failure; I27.20 Pulmonary hypertension, unspecified; E11.22 Type 2 diabetes mellitus with diabetic chronic kidney disease; I48.19 Other persistent atrial fibrillation; J44.0 Chronic obstructive pulmonary disease with (acute) lower respiratory infection; D64.9 Anemia, unspecified; B19.20 Unspecified viral hepatitis C without hepatic coma; I13.0 Hypertensive heart and chronic kidney disease with heart failure and stage 1 through stage 4 chronic kidney disease, or unspecified chronic kidney disease; Z20.822 Contact with and (suspected) exposure to COVID-19; J44.1 Chronic obstructive pulmonary disease with (acute) exacerbation; N18.4 Chronic kidney disease, stage 4 (severe); E66.01 Morbid (severe) obesity due to excess calories; J10.01 Influenza due to other identified influenza virus with the same other identified influenza virus pneumonia; E78.5 Hyperlipidemia, unspecified; I08.1 Rheumatic disorders of both mitral and tricuspid valves; N63.10 Unspecified lump in the right breast, unspecified quadrant; I25.10 Atherosclerotic heart disease of native coronary artery without angina pectoris; I45.10 Unspecified right bundle-branch block; I89.0 Lymphedema, not elsewhere classified; G47.33 Obstructive sleep apnea (adult) (pediatric); N18.30 Chronic kidney disease, stage 3 unspecified; Z79.01 Long term (current) use of anticoagulants; Z83.3 Family history of diabetes mellitus; Z85.3 Personal history of malignant neoplasm of breast; Z79.899 Other long term (current) drug therapy; Z88.6 Allergy status to analgesic agent; Z68.42 Body mass index [BMI] 45.0-49.9, adult; Z99.81 Dependence on supplemental oxygen
CPT/HCPCS: 71045; 80048; 82962; 83880; 84484; 85025; 87804; 93005; 93306; 93970; 94640; 97163; 99285; J2919; J3490; J3535; 36415-L1; 36415-TC; J7613

== ENCOUNTER 2024-02-07 08:43 | Emergency (ER) | payer MEDICARE, OTHER ==
[~2024-02-07] VITALS: Ht 167.6 cm; Wt 115.1 kg
[~2024-02-07 08:43] MED LIST changes: -APIX2.5T PO; +APIX5TAB PO; +LEVO-72 PO; +OSEL30CA2 PO; -OXYC-26 PO
[2024-02-07] MEDS ORDERED: ACETAMINOPHEN 500 MG TABLET PO ONE ×2 (09:00→09:45)
[2024-02-07 09:05] VITALS: TEMP 98
[2024-02-07 09:20] LABS: BASOPHILS % (AUTO) 1.1 % (0.0-2.0); HEMATOCRIT 27.9 % (36-46); LYMPHOCYTES # (AUTO) 0.7 K/uL (1.0-4.8); LYMPHOCYTES % (AUTO) 13.8 % (22.0-44.0); MEAN CORPUSCULAR HEMOGLOBIN 24.3 pg (26.0-34.0); MEAN CORPUSCULAR HGB CONC 28.7 G/dL (31.0-37.0); MEAN CORPUSCULAR VOLUME 85 fL (80-100); MONOCYTES # (AUTO) 0.5 K/uL (0.1-1.0); MONOCYTES % (AUTO) 10.2 % (2.0-9.0); NEUTROPHILS # (AUTO) 3.5 K/uL (1.8-7.7); NEUTROPHILS % (AUTO) 72.9 % (40.0-70.0); PLATELET COUNT (AUTO) 224 K/uL (150-450); RED CELL DISTRIBUTION WIDTH 23.6 % (11.5-14.5); WHITE BLOOD COUNT (AUTO) 4.8 K/uL (4.5-11.0)
[2024-02-07 09:29] LABS: CALCIUM, TOTAL 9.4 mg/dL (8.8-10.5); CREATININE 2.39 mg/dL (0.60-1.30); POTASSIUM 4.1 mmol/L (3.5-5.1)
[2024-02-07 09:36] LABS: ALBUMIN 2.9 g/dL (3.4-5.0); BILIRUBIN,DIRECT 0.5 mg/dL (0.00-0.20); TOTAL PROTEIN, SERUM 6.9 g/dL (6.4-8.2)
[2024-02-07] MEDS: OxyCODONE HCL 5 MG IR TABLET PO ONE (09:53)
[2024-02-07 10:32] LABS: APPEARANCE,URINE CLEAR (CLEAR); BILIRUBIN,URINE NEGATIVE (NEGATIVE); COLOR,URINE LIGHT YELLOW (YELLOW); GLUCOSE, URINE (UA) NEGATIVE (NEGATIVE); KETONES,URINE NEGATIVE (NEGATIVE); LEUKOCYTE ESTERASE ,URINE TRACE (NEGATIVE); NITRATE,URINE NEGATIVE (NEGATIVE); OCCULT BLOOD,URINE NEGATIVE (NEGATIVE); PH,URINE 6.5 (5.0-8.0); PROTEIN,URINE NEGATIVE (NEGATIVE); SPECIFIC GRAVITIY, URINE 1.011 (1.003-1.030); UROBILINOGEN,URINE <=1.0 mg/dL (<=1.0)
[2024-02-07 10:35] LABS: RBC MORPHOLOGY COMMENT ABNORMAL RBC MORPH
[2024-02-07 10:41] LABS: BACTERIA,URINE None Seen /HPF (None Seen); RBC,URINE None Seen /HPF (0-2); WBC,URINE 0-2 /HPF (0-5)
[2024-02-07 13:00] VITALS: BP 126/78; PULSE 79; RESP 18; O2SAT 97
[2024-02-08] MEDS ORDERED: PERCT PO (00:30)
[2024-02-08] MEDS ORDERED: METH-659 PO (00:30)
== END 2024-02-07 15:17 | disposition home or self-care (01) ==
LOC: EMS 08:43
DX: M54.9 Dorsalgia, unspecified (principal); R10.9 Unspecified abdominal pain; J44.9 Chronic obstructive pulmonary disease, unspecified; I11.0 Hypertensive heart disease with heart failure; I50.9 Heart failure, unspecified; E11.9 Type 2 diabetes mellitus without complications; Z88.5 Allergy status to narcotic agent; Z88.6 Allergy status to analgesic agent
CPT/HCPCS: 74176; 80048; 80076; 81001; 83690; 85025; 99284